=== PATIENT | female | born 1995 | race Caucasian/White ===

== ENCOUNTER 2019-04-03 17:06 | Emergency (ER) | payer SELFPAY ==
[~2019-04-03] VITALS: Ht 157.5 cm; Wt 100.7 kg
[2019-04-03 17:22] VITALS: Ht 157.5 cm; Wt 100.7 kg
[2019-04-03 20:45] VITALS: BP 138/63
== END 2019-04-03 20:45 | disposition home or self-care (01) ==
LOC: ED 17:06
DX: H66.93 Otitis media, unspecified, bilateral (principal); J45.909 Unspecified asthma, uncomplicated
CPT/HCPCS: 87804; Q0092